=== PATIENT | male | born 1980 | race Caucasian/White ===

== ENCOUNTER → 2021-09-23 | Outpatient (CLI) | payer BC ==
--- NOTE | 2021-09-23 20:48 | CONS ---
CONSULTATION REASON FOR CONSULTATION: Sleep apnea. 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 He works 3 days on, 4 days off, and his work schedule is 24 hours until 8 a.m. the next day. Sleep is disrupted by multiple calls on his working days. He typically tries to go to bed around 9 to 9:30 p.m. on those working days and he gets out of bed around 5:30 a.m. in the morning. On the days off, he goes to bed around 10 p.m., gets up around 7:30 or 8 a.m. in the morning. He snores. He has been told he quits breathing at night, and there is a concern about obstructive sleep apnea. He is feeling tired and fatigued and sleepy throughout the day. This has not affected his functionality at work. His [place] score is 6. No recent head trauma. No anxiety. No depression. Weight is up by around 10 pounds over the past one year. No sleep paralysis. No hallucinations. No cataplexy. No restlessness in the lower extremities. PAST MEDICAL HISTORY: Hyperlipidemia, hypertension, chronic sinus allergies and reflux. SURGICAL HISTORY: Surgical history includes ACL repair of the right knee and repair of an ascending aortic aneurysm. DRUG ALLERGIES: LIPITOR. MEDICATIONS: Outpatient medication list includes pravastatin 20 mg p.o. daily, aspirin 81 mg p.o. daily, lisinopril 5 mg p.o. daily, terbinafine as needed, and omeprazole 20 mg p.o. daily. SOCIAL HISTORY: Nonsmoker. No history of alcoholism. No history of IV drugs. 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 FAMILY HISTORY: Negative for obstructive sleep apnea. REVIEW OF SYSTEMS: Fourteen-point review of systems was done. Positive findings are all mentioned above in the history of present illness. PHYSICAL EXAMINATION: His BP is 117/78, pulse 68, respirations 16, temperature 97.0, saturation 97% on room air. Height is 5 feet 9 inches. Weight is 229. BMI is 33.3. [place] score is 6. Neck size is 16-3/4 inches. GENERAL APPEARANCE: Calm, comfortable. HEAD: Atraumatic, normocephalic. Neck is supple. No JVD. No goiter or neck masses. LUNGS: Clear to auscultation. Heart sounds are regular rate and rhythm. Normal S1, S2. No S3, S4. No murmurs. ABDOMEN: Soft, nontender. No organomegaly. EXTREMITIES: No edema. No cyanosis or clubbing. IMPRESSION: 1. Hypersomnia, under investigation. Rule out underlying obstructive sleep apnea. Rule out impaired sleep schedule due to work-related factors. 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 As such, irregular sleep schedules may be contributing to this. He does not have insufficient sleep syndrome, as the patient is spending an excessive number of hours in bed on his days off, and he does not get enough refreshment. 2. Hypertension. 3. Hyperlipidemia. 4. Reflux. PLAN: 1. Proceed with a screening polysomnography. 2. Encourage weight loss. 3. Optimize sleep hygiene measures. 4. Will continue to follow and make further recommendations based on the results of the sleep study. MMODL / IJN: [id number] /
--- NOTE | 2021-10-21 21:36 | SLS ---
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 The patient was considered for sleep apnea accordingly. The patient had a quite difficult swing shift type of work schedule. There was obviously a work schedule related factors affecting his functionality and alertness during the day. He was working 3 days on, 4 days off, and he was doing 24 hour shifts. As such, his sleep schedule was quite irregular. He states he has been spending excessive number of hours in bed on his day off and he is not getting enough refreshment. For that reason, sleep apnea was being considered in this patient. PERTINENT PHYSICAL FINDINGS: Height is 5 feet 9 inches, weight is 229, BMI 33.3. TECHNICAL DESCRIPTION: The [employer] system was used to complete the home sleep study. Total recording duration was 8 hours and 4 minutes. The study started at 9:32 pm and ended at 5:36 am. This is a type 3 home sleep study. This was an adequate study, knowing that there was 7 hours and 52 minutes of flow evaluation and 7 hours and 53 minutes of oxygen saturation evaluation. RESULTS: Respiratory count showed a total of 3 obstructive apneas, one central apnea, 0 mixed apneas and 121 obstructive hypopneas. The resulting AHI was 15.9. OXYGENATION ANALYSIS: The patient had a total of 160 oxygen desaturation. Minimum pulse ox was 77 percent. The patient spent approximately 24 minutes of sleep time with a pulse ox of 88% and below accounting for 5% of the overall sleep time. CARDIAC SUMMARY: Average heart rate was 64, minimum heart rate 50, maximum heart rate 98. IMPRESSION: 1. Mild to moderate obstructive sleep apnea, AHI of 15.9. 2. Mild nocturnal oxygen desaturation with a minimum pulse ox of 77 percent. 3. Chronic hypersomnia. 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 5. Hypertension. 6. Hyperlipidemia. 7. Obesity with a BMI of 33.3. PLAN: The results will be discussed with the patient. Obviously, I have made this patient aware that he has an irregular sleep schedule that may affect his functionality and level of alertness during the day. At the same time, the patient has a mild to moderate component of obstructive sleep apnea. He has been encouraged to lose weight. Based on his ongoing symptoms of increased fatigue and tiredness and sleepiness despite taking sufficient number of hours of sleep, I am considering to give the patient a trial of APAP. The patient will be given an APAP machine pressure minimum of 5, maximum of 15 and this will be done on a trial basis. The patient will see me back in 30 to 90 days to assess clinical response and compliancy. Meanwhile, the patient should put an active effort to lose weight and improve sleep hygiene measures and see me back in 30 to 90 days for a compliance check here at the sleep center. MMODL / IJN: [id number] /
== END | disposition home or self-care (01) ==
LOC: SLEEP 15:52
PROVIDERS: ATTEND Internal Medicine Critical Care Medicine
DX: G47.10 Hypersomnia, unspecified (principal); I10 Essential (primary) hypertension; E78.5 Hyperlipidemia, unspecified; K21.9 Gastro-esophageal reflux disease without esophagitis
CPT/HCPCS: 99202